=== PATIENT | male | born 1955 | race Caucasian/White ===

== ENCOUNTER 2022-01-23 06:49 | Day surgery (SDC) | payer BC ==
[2022-01-23] MEDS ORDERED: Lactated Ringers 1,000 ML IV SCH (07:00)
[2022-01-23] MEDS ORDERED: Propofol 200 MG/20 ML SDV ONE ×2 (08:39→10:07)
[2022-01-23] MEDS ORDERED: fentaNYL 100 MCG/2 ML SDV ONE (08:39)
[2022-01-23] MEDS: Lactated Ringers 1,000 ML IV SCH (09:01)
[2022-01-23 11:08] VITALS: BP 115/71; PULSE 46
[2022-01-23] MEDS: Orphenadrine 100 MG Tab.ER PO ONE (11:39)
== END 2022-01-23 12:10 | disposition home or self-care (01) ==
LOC: VM.SDS 06:49
PROVIDERS: ATTEND Student in an Organized Health Care Education/Training Program
DX: Z12.11 Encounter for screening for malignant neoplasm of colon (principal); D12.3 Benign neoplasm of transverse colon; D12.2 Benign neoplasm of ascending colon; J31.0 Chronic rhinitis; L30.9 Dermatitis, unspecified; K21.9 Gastro-esophageal reflux disease without esophagitis; Z86.010 Personal history of colon polyps; Z98.890 Other specified postprocedural states; Z87.891 Personal history of nicotine dependence
CPT/HCPCS: 00812; 36415; 80053; 80076; 83735; 85025; 96361; 96374; 99284-25; A9270-GY; J2704; J2765; J3010; J7030; J7120; Q0162